=== PATIENT | female | born 1980 | race Caucasian/White ===

== ENCOUNTER 2023-08-23 08:16 | Outpatient (REF) | payer BC, SELFPAY ==
[2023-08-23 11:34] LABS: MANUAL DIFF FLAG NO
[2023-08-23 11:44] LABS: Basophils Absolute Auto 0.1 X10*3/uL (0.0-0.2); Basophils Percent Auto 0.9 % (0-2); Eosinophils Absolute Auto 0.1 X10*3/uL (0.0-0.4); Eosinophils Percent Auto 2.2 % (0-4); Hematocrit 42.7 % (37.0-47.0); Hemoglobin 14.1 g/dl (12.0-16.0); Imm Gran Abs Auto 0.02 X10*3/uL (0.00-0.03); Imm Gran Pct Auto 0.4 % (0.0-0.4); Lymphocytes Absolute Auto 2.4 X10*3/uL (1.2-4.9); Lymphocytes Percent Auto 43.5 % (20-40); Mean Corpuscular Hemoglobin 29.5 pg (27.0-33.0); Mean Corpuscular Volume 89.3 fL (80.0-98.0); Mean Platelet Volume 10.4 fL (9.4-12.3); Monocytes Absolute Auto 0.3 X10*3/uL (0.1-1.2); Monocytes Percent Auto 5.2 % (2-11); Neutrophils Absolute Auto 2.7 x10*3/uL (2.0-8.3); Neutrophils Percent Auto 47.8 % (45-73); Platelet Count 306 X10*3/uL (160-400); Red Blood Count 4.78 X10*6/uL (4.20-5.50); Red Cell Distribution Width 13.2 % (11.0-16.0); White Blood Count 5.6 X10*3/uL (4.8-10.8)
[2023-08-23 12:11] LABS: Alanine Aminotransferase 28 U/L (0-31); Albumin Level 4.4 g/dL (3.5-5.0); Alkaline Phosphatase 54 U/L (39-117); Anion Gap 13 (12-20); Aspartate Amino Transferase 21 U/L (5-31); Bilirubin Total 0.3 mg/dL (0.0-1.0); Blood Urea Nitrogen 10 mg/dL (9-16); Calcium 9.3 mg/dL (8.4-10.2); Carbon Dioxide 21 mmol/L (22-29); Chloride 110 mmol/L (96-108); Cholesterol 160 mg/dL (<200); Estimated Glomerular Filt Rate > 60; Glucose Fasting 98 mg/dL (60-99); HDL Cholesterol 50 mg/dL (>40); LDL Cholesterol Calculated 83 mg/dL (<100); Potassium 4.5 mmol/L (3.3-5.1); Sodium 139 mmol/L (135-145); Total Protein 7.2 g/dL (6.5-8.0); Triglycerides 139 mg/dL (<150)
[2023-08-23 12:27] LABS: Thyroid Stimulating Hormone 2.42 uIU/mL (0.32-4.0); Vitamin D 25-OH Total 27.5 ng/mL (>30)
== END 2023-08-23 08:17 | disposition home or self-care (01) ==
LOC: HO.HMGCLDS 08:16
PROVIDERS: PCP Internal Medicine; Visit Provider Internal Medicine
DX: Z00.00 Encounter for general adult medical examination without abnormal findings (principal); F41.9 Anxiety disorder, unspecified
CPT/HCPCS: 36415; 80053; 80061; 82306; 84443; 85025

== ENCOUNTER 2023-09-14 10:50 | Outpatient (AMB) | payer BC, SELFPAY ==
[2023-09-14 10:53] VITALS: BP 104/70; PULSE 62; O2SAT 98; BMI 33.7
--- NOTE | 2023-09-14 10:53 | A.OFFVIS_ITS ---
Intake Vital Signs 09/14/23 10:53 Height 5 ft 8 in Weight 221 lb 9.033 oz BMI 33.7 BP 104/70 Blood Pressure Location Lt brachial Position Sitting Pulse 62 Pulse Source Pulse Oximeter Pulse Oximetry (%) 98 Oxygen Delivery Method Room Air Intake Visit Reasons: Snoring Intake Note: pt is here as a new patient for work up of [place], she states she snores, daytime somnolence. pt does have a hx of childhood asthma, and pneumonia 4 x as a child and once in 2016. Sample Cutter Required: No Allergies metaproterenol [From ALUPENT] Allergy (Unknown, Unverified 09/14/23 11:27) RAPID HEART RATE nut - unspecified [NUTS] Allergy (Unknown, Unverified 09/14/23 11:27) THROAT CLOSES Sulfa (Sulfonamide Antibiotics) [SULFA (SULFONAMIDE ANTIBIOTICS)] Allergy (Unknown, Unverified 09/14/23 11:27) RASH Medication List - Last Reconciled 09/14/23 by Michael Osman MD escitalopram oxalate 10 mg PO DAILY multivitamin (Daily Multi-Vitamin tablet) 1 tab PO DAILY PRN Do you need a note to return to daycare/school/sports/work: No HPI Snoring HPI Details 43 YEARS OLD FEMALE, WELL EDUCATED, GRAD UATE OF [facility] [employer] IN 1999, 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 ADRIAN ALVARES, TO BE EVALUATED FOR SLEEP APNEA. HER MAIN COMPLAINT IS SNORING AND DAYTIME SLEEPINESS. SHE GIVES HISTORY OF GAINING SIGNIFICANT AMOUNT OF WEIGHT AFTER THE OF HER DAUGHTER ABOUT 10 YEARS AGO. SINCE 2015 SHE HAS NOT BEEN ABLE TO LOSE WEIGHT. SHE HAS HISTORY OF SNORING EVERY NIGHT SINCE THEN, WAKES UP WITH DRY MOUTH. DURING THE NIGHT SHE WAKES ABOUT 2 OR 3 TIMES TO GO TO THE BATHROOM, BUT SHE DENIES WAKING UP WITH GASPING LIKE FEELING. AFTER WAKING UP SHE GOES RIGHT BACK TO SLEEP. SHE DOES GET ABOUT 6-7 HOURS OF SLEEP EVERY NIGHT, BUT WAKES UP SOMEWHAT UNREFRESHED. SHE DOES HAVE DAYTIME SOMNOLENCE, SUCH IF SHE SITS AND WATCHES TV STARTS READING ANY BOOK, AND ALSO WHEN SHE COMES BACK FROM WORK SHE IS TIRED AND SLEEPY IN THE AFTERNOON. ESS= 15. SHE HAS BEEN TOLD THAT SHE HAS A SLIGHT OVERBITE OF HER TEETH. SHE HAS HISTORY OF BRONCHIAL ASTHMA IN CHILDHOOD BUT OUTGREW, AND THEN SHE HAS NOT USED ANY BRONCHODILATOR INHALER FOR LONG TIME. HOWEVER IF DURING THE YEAR SHE SUFFERS FROM ANY ACUTE RESPIRATORY INFECTION SHE MAY NEED TO USE ALBUTEROL JUST FOR A SHORT PERIOD. SHE HAS MILD DEGREE OF DEPRESSION CONTROLLED WITH ESCITALOPRAM 10 MG DAILY. [facility] Medical History (Updated 09/14/23 @ 11:41 by Michael Osman MD) Somnolence, daytime Snoring Retrognathia Obesity (BMI 30-39.9) Social History Patient Tobacco Use Status: Former Tobacco user Years Smoked: 18 Review of Systems Const All systems reviewed & are unremarkable except as noted in HPI and below Eyes Reports no additional complaints ENT Reports no additional complaints Card Denies chest pain, Denies irregular heart rhythm, Denies leg edema and Denies dyspnea on exertion Resp Reports as per HPI and Denies dyspnea on exertion GI Reports no additional complaints Reports nocturia (2-3 TIMES ) Musc Reports no additional complaints Skin/Breast Reports system reviewed and no additional complaints, except as documented Neuro Reports no additional complaints Psych Reports depression (MILD WELL CONTROLLED) Endo Reports no additional complaints Duncan/Lymph Reports no additional complaints Aller/Immun Reports no additional complaints Physical Exam Vital Signs: Last Vital Signs Pulse 62 09/14/23 10:53 BP 104/70 09/14/23 10:53 Pulse Ox 98 09/14/23 10:53 Oxygen Delivery Method Room Air 09/14/23 10:53 BMI result Body Mass Index 33.7 VERY PLEASANT, HEALTHY LOOKING WITH MODERATE OBESITY Const General: healthy appearing (EXCEPT FOR BEING OVERWEIGHT), comfortable, no acute distress, alert and awake Orientation/consciousness: patient oriented x3 HEENT Head: Yes normal to inspection General nose exam: No nasal polyps present and No nasal discharge present Face and sinus: Yes sinuses nontender Mouth: oropharynx normal (TONGUE IS PLACED BACK, OROPHARYNX IS SLIGHTLY CROWDED ) and other (MALLAMPATI CLASS 3) Teeth and gingiva: other (MILD RETRO AGAIN JOSEFINA OF THE LOWER JAW) Throat: Yes posterior oropharynx normal Eyes General: appearance normal, both eyes and all related structures Neck Neck: Yes normal visual inspection, Yes no lymphadenopathy, Yes trachea midline, Yes no JVD and Yes other (NECK SIZE 16 IN) Thyroid: Thyroid normal Chest Chest palpation & inspection: normal inspection of the chest, normal palpation of entire chest wall and no tenderness Resp Effort & Inspection: normal respiratory effort Auscultation: clear to auscultation bilaterally, no crackles and no wheezes Cardio Palpation: normal PMI Rate: regular rate Rhythm: regular rhythm Heart sounds: no gallops and no murmurs Peripheral pulses: Peripheral pulses 2+ throughout GI Palpation (GI): Soft to palpation, nontender, No hepatosplenomegaly present and no masses Auscultation: normal bowel sounds Back/Spine/Pelvis Thoracic/Lumbar Spine: thoracic and lumbar spine normal to inspection Skin General skin exam: no rashes or lesions noted Neuro General: patient oriented x3 and no focal motor deficits Cranial nerves: Yes CN's II-XII intact bilaterally Extrem General: Yes normal to inspection, Yes no clubbing, cyanosis or edema and Yes no calf tenderness Psych Speech and movement: Normal speech and movement present Results Reviewed Results Reviewed: APT FOR SLEEPINESS SCALE = 15/24 Assessment & Plan Assessment & Plan (1) Obesity (BMI 30-39.9): Comment: SHE IS MODERATELY OBESE. HAS BEEN FAIRLY WELL CONSCIOUS OF THIS BUT HAS NOT TRIED TO LOSE WEIGHT, SERIOUSLY. Code(s): E66.9 - Obesity, unspecified Plan: DISCUSSED ABOUT THE NEED TO LOSE WEIGHT AND ALSO RELATIONSHIP OF WEIGHT WITH SNORING AND SLEEP APNEA (2) Retrognathia: Comment: SHE HAS A MILD RETRO AGAIN JOSEFINA OF THE LOWER JAW, AND THIS MAY BE CONTRIBUTING TO SNORING AND POSSIBLE SLEEP APNEA. Code(s): M26.19 - Other specified anomalies of jaw-cranial base relationship Plan: PATIENT JUST EDUCATED ABOUT THIS (3) Snoring: Comment: SHE HAS HAD LOUD SNORING FOR MANY YEARS AT LEAST SINCE 2015 Code(s): R06.83 - Snoring Plan: WILL BE EVALUATED FOR SLEEP APNEA (4) Somnolence, daytime: Comment: PATIENT HAS EXCESSIVE DAYTIME SLEEPINESS, EPWORTH SLEEPINESS SCALE 15. VERY MUCH SUGGESTIVE OF INSUFFICIENT SLEEP AT NIGHT DUE TO OBSTRUCTIVE SLEEP APNEA. Code(s): R40.0 - Somnolence Plan: WE HAD A LONG DISCUSSION, SHE IS FULLY EDUCATED ABOUT SNORING AND SLEEP APNEA. SHE WILL HAVE A HOME-BASED SLEEP STUDY, WHICH HAS BEEN EXPLAINED IN DETAIL. WILL BE RECHECKED AFTER THE SLEEP STUDY Orders: Orders RT home sleep study Today E66.9 - Obesity, unspecified, M26.19 - Other specified anomalies of jaw-cranial base relationship, R06.83 - Snoring, R40.0 - Somnolence Coding Level of Care Code New Pt Level 4 (83700) Diagnoses Obesity (BMI 30-39.9) E66.9 Retrognathia M26.19 Snoring R06.83 Somnolence, daytime R40.0
== END 2023-09-14 11:30 | disposition home or self-care (01) ==
PROVIDERS: PCP Internal Medicine; Referring Provider Internal Medicine; Visit Provider Internal Medicine
DX: E66.9 Obesity, unspecified (principal); M26.19 Other specified anomalies of jaw-cranial base relationship; R06.83 Snoring; R40.0 Somnolence
CPT/HCPCS: 99204

== ENCOUNTER → 2023-09-14 10:50 | Outpatient (BNVA) | payer BC, SELFPAY | PROVIDERS: PCP Internal Medicine; Referring Provider Internal Medicine; Visit Provider Internal Medicine ==

== ENCOUNTER → 2023-11-24 20:30 | Outpatient (REF) | payer BC, SELFPAY | LOC: HO.SL 20:30 | PROVIDERS: PCP Internal Medicine; Visit Provider Internal Medicine | DX: G47.33 Obstructive sleep apnea (adult) (pediatric) (principal); R40.0 Somnolence; R06.83 Snoring; E66.9 Obesity, unspecified | CPT/HCPCS: 95810 ==

== ENCOUNTER → 2023-11-24 21:48 | Outpatient (BNV) | payer BC, SELFPAY | PROVIDERS: PCP Internal Medicine; Visit Provider Internal Medicine | DX: G47.33 Obstructive sleep apnea (adult) (pediatric) (principal) | CPT/HCPCS: 95810 ==

== ENCOUNTER 2023-12-20 14:05 | Outpatient (AMB) | payer BC, SELFPAY ==
[2023-12-20 14:11] VITALS: BP 102/68; PULSE 71; O2SAT 96; BMI 34.9
--- NOTE | 2023-12-20 14:11 | A.OFFVIS_ITS ---
Vital Signs 12/20/23 14:11 Height 5 ft 8 in Weight 229 lb 4.492 oz BMI 34.9 BP 102/68 Blood Pressure Location Lt brachial Position Sitting Pulse 71 Pulse Source Pulse Oximeter Pulse Oximetry (%) 96 Oxygen Delivery Method Room Air Intake Visit Reasons: sleep apnea Intake Note: pt is here for follow up and states she is fine, here for sleep study results. Integration Project Manager Required: No Allergies metaproterenol [From ALUPENT] Allergy (Unknown, Unverified 12/20/23 16:16) RAPID HEART RATE nut - unspecified [NUTS] Allergy (Unknown, Unverified 12/20/23 16:16) THROAT CLOSES Sulfa (Sulfonamide Antibiotics) [SULFA (SULFONAMIDE ANTIBIOTICS)] Allergy (Unknown, Unverified 12/20/23 16:16) RASH Medication List - Last Reconciled 12/20/23 by Michael Osman MD escitalopram oxalate 10 mg PO DAILY multivitamin (Daily Multi-Vitamin tablet) 1 tab PO DAILY PRN Do you need a note to return to daycare/school/sports/work: No HPI HPI sleep apnea: Details: FAB, 43 YEARS OLD FEMALE, COMES FOR FOLLOW-UP AFTER HER POLYSOMNOGRAM STUDY. THE SLEEP STUDY WAS PERFORMED SHE HAS COMPLAINT OF SNORING , AND QUESTIONABLE SLEEP APNEA. A POLYSOMNOGRAM STUDY WAS ORDERED WHICH WAS DONE IN THE SLEEP LAB. RESULTS WILL BE DESCRIBED BELOW. [facility] Medical History (Updated 12/20/23 @ 16:24 by Michael Osman MD) Periodic limb movement disorder Somnolence, daytime Snoring Retrognathia Obesity (BMI 30-39.9) Social History Patient Tobacco Use Status: Former Tobacco user Years Smoked: 18 Review of Systems Const All systems reviewed & are unremarkable except as noted in HPI and below Eyes Reports no additional complaints ENT Reports no additional complaints Card Denies chest pain, Denies irregular heart rhythm, Denies leg edema and Denies dyspnea on exertion Resp Reports as per HPI and Denies dyspnea on exertion GI Reports no additional complaints Reports nocturia (2-3 TIMES ) Musc Reports no additional complaints Skin/Breast Reports system reviewed and no additional complaints, except as documented Neuro Reports no additional complaints Psych Reports depression (MILD WELL CONTROLLED) Endo Reports no additional complaints Duncan/Lymph Reports no additional complaints Aller/Immun Reports no additional complaints Physical Exam Vital Signs: Last Vital Signs Pulse 71 12/20/23 14:11 BP 102/68 12/20/23 14:11 Pulse Ox 96 12/20/23 14:11 Oxygen Delivery Method Room Air 12/20/23 14:11 BMI result Body Mass Index 34.9 VERY PLEASANT, HEALTHY LOOKING WITH MODERATE OBESITY Const General: healthy appearing (EXCEPT FOR BEING OVERWEIGHT), comfortable, no acute distress, alert and awake Orientation/consciousness: patient oriented x3 HEENT Head: Yes normal to inspection General nose exam: No nasal polyps present and No nasal discharge present Face and sinus: Yes sinuses nontender Mouth: oropharynx normal (TONGUE IS PLACED BACK, OROPHARYNX IS SLIGHTLY CROWDED ) and other (MALLAMPATI CLASS 3) Teeth and gingiva: other (MILD RETRO AGAIN JOSEFINA OF THE LOWER JAW) Throat: Yes posterior oropharynx normal Eyes General: appearance normal, both eyes and all related structures Neck Neck: Yes normal visual inspection, Yes no lymphadenopathy, Yes trachea midline, Yes no JVD and Yes other (NECK SIZE 16 IN) Thyroid: Thyroid normal Chest Chest palpation & inspection: normal inspection of the chest, normal palpation of entire chest wall and no tenderness Resp Effort & Inspection: normal respiratory effort Auscultation: clear to auscultation bilaterally, no crackles and no wheezes Cardio Palpation: normal PMI Rate: regular rate Rhythm: regular rhythm Heart sounds: no gallops and no murmurs Peripheral pulses: Peripheral pulses 2+ throughout GI Palpation (GI): Soft to palpation, nontender, No hepatosplenomegaly present and no masses Auscultation: normal bowel sounds Back/Spine/Pelvis Thoracic/Lumbar Spine: thoracic and lumbar spine normal to inspection Skin General skin exam: no rashes or lesions noted Neuro General: patient oriented x3 and no focal motor deficits Cranial nerves: Yes CN's II-XII intact bilaterally Extrem General: Yes normal to inspection, Yes no clubbing, cyanosis or edema and Yes no calf tenderness Psych Speech and movement: Normal speech and movement present Results Reviewed Results Reviewed: POLYSOMNOGRAM STUDY IN THE SLEEP LAB SHOWED HER SLEEP EFFICIENCY AND SLEEP ARCHITECTURE WERE NORMAL SHE DID NOT HAVE MUCH SNORING AND THERE WAS NO EVIDENCE OF SLEEP APNEA TOTAL SLEEP TIME AHI WAS ONLY 1.4. A MINIMAL DEGREE OF PERIODIC LIMB MOVEMENT DISORDER WAS NOTED WITH PLM INDEX 16 AND PLM AROUSAL INDEX 6.9 Assessment & Plan Assessment & Plan (1) Obesity (BMI 30-39.9): Comment: SHE IS MODERATELY OBESE. HAS BEEN FAIRLY WELL CONSCIOUS OF THIS BUT HAS NOT TRIED TO LOSE WEIGHT, SERIOUSLY. Code(s): E66.9 - Obesity, unspecified Category: Medical Plan: DISCUSSED ABOUT THIS AND ENCOURAGED TO LOSE 5-10 LB OF WEIGHT. (2) Snoring: Comment: SHE HAS HAD LOUD SNORING FOR MANY YEARS AT LEAST SINCE 2015 HOWEVER DURING THE POLYSOMNOGRAM STUDY SHE DID NOT HAVE MUCH SNORING. IT WAS NOTED THAT DURING THE STUDY SHE DID NOT SLEEP IN SUPINE POSITION. Code(s): R06.83 - Snoring Category: Medical Plan: EXPLAINED THAT IT IS POSSIBLE THAT AT HOME SHE TENDS TO SLEEP MORE IN SUPINE POSITION AND WOULD HAVE SNORING. BUT DURING THE SLEEP STUDY SHE STAYS MOSTLY IN THE LATERAL POSITIONS AND THUS THERE WAS NOT MUCH SNORING. MODERATE WEIGHT REDUCTION AND ALSO POSITION THERAPY SHOULD BE HELPFUL. (3) Somnolence, daytime: Comment: PATIENT HAS EXCESSIVE DAYTIME SLEEPINESS, EPWORTH SLEEPINESS SCALE 15. THE SLEEP STUDY DID NOT SHOW ANY SLEEP APNEA. AND THE SLEEP EFFICIENCY AND ARCHITECTURE WERE RELATIVELY NORMAL. SO HER DAYTIME SLEEPINESS IS MORE FUNCTIONAL, Code(s): R40.0 - Somnolence Category: Medical Plan: SHE IS ADVISED TO TRY TO REDUCE WEIGHT AND TRY TO DO SOME DAILY EXERCISE. (4) Periodic limb movement disorder: Comment: SHE HAS A MILD PERIODIC LIMB MOVEMENT DISORDER WITH PLM AROUSAL INDEX 6.9. THIS CAN BE SEEN IN PATIENTS TAKING SSRI COMPOUNDS, SHE IS ON ESCITALOPRAM. THE DEGREE OF PLM DISORDER IS NOT SIGNIFICANT. AND SHE DOES NOT SEEM TO HAVE ANY SYMPTOMS RELATED TO IT Code(s): G47.61 - Periodic limb movement disorder Category: Medical Plan: NO SPECIFIC TREATMENT NEEDED Coding Level of Care Code Est Pt Level 3 (80264) Diagnoses Obesity (BMI 30-39.9) E66.9 Snoring R06.83 Somnolence, daytime R40.0 Periodic limb movement disorder G47.61
== END 2023-12-20 14:31 | disposition home or self-care (01) ==
PROVIDERS: PCP Internal Medicine; Visit Provider Internal Medicine
DX: E66.9 Obesity, unspecified (principal); R06.83 Snoring; R40.0 Somnolence; G47.61 Periodic limb movement disorder
CPT/HCPCS: 99213

== ENCOUNTER → 2023-12-20 14:05 | Outpatient (BNVA) | payer BC, SELFPAY | PROVIDERS: PCP Internal Medicine; Visit Provider Internal Medicine ==

== ENCOUNTER 2024-09-06 07:51 | Day surgery (SDC) | payer BC, SELFPAY ==
[2024-09-04 14:51] VITALS: BMI 33.4
--- NOTE | 2024-09-05 09:23 | HO.ANESPROP2 ---
Documented by User: Radha Parsons NP 09/05/24 09:24 HPI - Anesthesia Eval Consult details Narrative: 44yo F for Colonoscopy PMFSH Active Problems Active Problems: All Active Problems Periodic limb movement disorder (Acute) Somnolence, daytime (Acute) Snoring (Acute) Retrognathia (Acute) Obesity (BMI 30-39.9) (Acute) Past Medical History Medical History Nephrolithiasis Periodic limb movement disorder Somnolence, daytime Snoring Retrognathia Obesity (BMI 30-39.9) Surgical History Surgical History Hx of wisdom tooth extraction Hx of section Social History Social History Are you a primary lead caregiver to a significant other at home: No Do you presently have visiting nurse or other home services: No Patient Tobacco Use Status: Former Tobacco user Tobacco use type: Cigarette Years Smoked: 18 Smoked in Last 30 Days: No Use of substances other than those prescribed or required for medical reasons: No Have you been hit, kicked, punched, or otherwise hurt by someone within the past year? If so, by whom?: No Are you DNR?: No Advance Directives: No Advance Directives Information Provided: No Advance Directives on File: No Recently lost weight without trying: No How much weight loss: Not applicable Eating poorly because of decreased appetite: No Nutrition screen score: 0 Nutrition Risks: No Nutritional Risk Patient : No : No Poor oral hygiene: Yes (bottom implant x1) Meds Allergies Allergy/AdvReac Type Severity Reaction Status Date / Time metaproterenol [From ALUPENT] Allergy Severe RAPID Verified 09/06/24 08:42 HEART RATE nut - unspecified [NUTS] Allergy Severe THROAT Verified 09/06/24 08:42 CLOSES Sulfa (Sulfonamide Allergy Severe RASH Verified 09/06/24 08:42 Antibiotics) [SULFA (SULFONAMIDE ANTIBIOTICS)] Home Medications ?Medication ?Instructions ?Recorded ?Confirmed ?Last Taken ?Type escitalopram oxalate 10 mg tablet 10 mg PO DAILY 09/14/23 09/06/24 Unknown History multivitamin (Daily Multi-Vitamin 1 tab PO DAILY 09/14/23 09/06/24 Unknown History tablet) Exam Height,Weight and Vital Signs: Height 5 ft 9 in Weight 102.512 kg Assessment and Plan Assessment Anesthesia Assessment: Chart Reviewed Documented by User: Selin Olivares MD 09/06/24 09:08 [facility] Past Medical History Medical History Nephrolithiasis Periodic limb movement disorder Somnolence, daytime Snoring Retrognathia Obesity (BMI 30-39.9) Surgical History Surgical History Hx of wisdom tooth extraction Hx of section History of Problems with Anesthesia: No Social History Social History Are you a primary lead caregiver to a significant other at home: No Do you presently have visiting nurse or other home services: No Patient Tobacco Use Status: Former Tobacco user Tobacco use type: Cigarette Years Smoked: 18 Smoked in Last 30 Days: No Use of substances other than those prescribed or required for medical reasons: No Have you been hit, kicked, punched, or otherwise hurt by someone within the past year? If so, by whom?: No Are you DNR?: No Advance Directives: No Advance Directives Information Provided: No Advance Directives on File: No Recently lost weight without trying: No How much weight loss: Not applicable Eating poorly because of decreased appetite: No Nutrition screen score: 0 Nutrition Risks: No Nutritional Risk Patient : No : No Poor oral hygiene: Yes (bottom implant x1) Meds Allergies Allergy/AdvReac Type Severity Reaction Status Date / Time metaproterenol [From ALUPENT] Allergy Severe RAPID Verified 09/06/24 08:42 HEART RATE nut - unspecified [NUTS] Allergy Severe THROAT Verified 09/06/24 08:42 CLOSES Sulfa (Sulfonamide Allergy Severe RASH Verified 09/06/24 08:42 Antibiotics) [SULFA (SULFONAMIDE ANTIBIOTICS)] Home Medications ?Medication ?Instructions ?Recorded ?Confirmed ?Last Taken ?Type escitalopram oxalate 10 mg tablet 10 mg PO DAILY 09/14/23 09/06/24 Unknown History multivitamin (Daily Multi-Vitamin 1 tab PO DAILY 09/14/23 09/06/24 Unknown History tablet) Exam Airway Mallampati Class: III TM Dist: >3cm Neck ROM: Full Loose/Missing/Broken Teeth: No Heart: RRR Lungs: CTA Assessment and Plan Assessment Anesthesia Assessment: Anesthesia Plan Discussed Final Anesthetic Review History of Problems with Anesthesia: No NPO: Yes ASA Class: II Final Preanesthetic Review: Meds/Allgs Chart Reviewed, Consent Obtained/Reviewed and Anes Risks/Benef Reviewed Patient Risk: Low Procedure Risk: Low Anesthetic Plan Anesthetic Plan: MAC: Disposition: Standard PACU
[2024-09-06 08:42] VITALS: BP 144/63; PULSE 63; RESP 16; TEMP 37.1; O2SAT 97; BMI 32.9
[2024-09-06 08:53] LABS: UPreg QC Valid YES; Urine Pregnancy NEGATIVE (NEGATIVE)
[2024-09-06] MEDS: Lactated Ringers 1,000 ML 100 ML IVCONT (09:10)
--- NOTE | 2024-09-06 09:39 | MHC.SHP ---
Pre-Procedural Eval Section A - 24 Hr Update-Section A only Date of Service: 09/06/24 Section B - Complete if H&P > 30 days Chief Complaint: Encounter for screening for malignant neoplasm of Details of Present Illness: see H&P no changes Relevant Family History (Specify if Yes): No Relevant Social History: None Present Medications: see Short Stay Collaborative assessment Medical History: No relevant PMH History of Previous Operations: No relevant previous surgery Allergies: Allergies Allergy/AdvReac Type Severity Reaction Status Date / Time metaproterenol [From ALUPENT] Allergy Severe RAPID Verified 09/06/24 08:42 HEART RATE nut - unspecified [NUTS] Allergy Severe THROAT Verified 09/06/24 08:42 CLOSES Sulfa (Sulfonamide Allergy Severe RASH Verified 09/06/24 08:42 Antibiotics) [SULFA (SULFONAMIDE ANTIBIOTICS)] Review of Systems Sugical H&P ROS: Negative: Constitution, Cardiovascular, Respiratory, Neurological, Psychiatric, Hem-Onc, Allergic/Immunologic, Gastrointestinal, Genitourinary, Musculoskeletal, Integumentary, Endocrine and Eyes/Ears/Nose/Throat Exam Surgical H&P Exam: Normal: HEENT, Normal: Heart, Normal: Lungs, Normal: Extremities, Normal: Abdomen, Normal: Skin and Normal: Neurological Plan Diagnosis/Plan: Unchanged I have reviewed the history and physical and performed a pertinent physical examination on my patient. No changes have occurred unless specified. Time Spent With Patient Time: Total time managing care of this patient today ____ minutes.
[2024-09-06 10:21] VITALS: BP 109/65; PULSE 61; RESP 18; TEMP 36.3; O2SAT 100
[2024-09-06 10:36] VITALS: BP 128/74; PULSE 54; RESP 18; O2SAT 100
[2024-09-06 10:46] VITALS: BP 138/89; PULSE 56; RESP 16; TEMP 36.3; O2SAT 98
--- NOTE | 2024-09-06 10:53 | OP_ITS ---
DATE OF SERVICE: 09/06/2024 SURGEON: Sherman Ovalles MD INDICATIONS: Colon cancer screening. PREOPERATIVE DIAGNOSIS: POSTOPERATIVE DIAGNOSIS: PROCEDURE PERFORMED: Colonoscopy to the terminal ileum with biopsy and snare polypectomy. ESTIMATED BLOOD LOSS: COMPLICATIONS: ANESTHESIA: Monitored anesthesia care. ASSISTANTS: SPECIMENS: DESCRIPTION OF PROCEDURE: A history and physical was performed. The risks and benefits of the procedure were explained to the patient and informed consent was obtained. The patient was placed in the left lateral decubitus position. A digital rectal exam was performed and was found to be normal. The Olympus pediatric video colonoscope was introduced in the rectum and advanced to the cecum. The cecum was identified by transillumination, palpation, and identification of ileocecal valve. Examination was performed and the scope was removed. She tolerated the procedure well and was returned to recovery area in stable condition. FINDINGS: The terminal ileum was examined and appeared normal. The visualized colonic mucosa was normal. The quality of the prep was good. Two polyps were identified. The 1st measured less than 5 mm and was located at 45 cm. This was removed with biopsy forceps. The 2nd measured approximately 7 mm and was removed with a cold snare. The polyp was recovered via suction. The quality of the prep was good. No other polyps were identified. Retroflexed examination showed small to moderate-sized internal hemorrhoids. IMPRESSION: Colon polyps. RECOMMENDATION: Follow up the biopsy results. MD WILBUR Amos/MARGRET / [phone]
== END 2024-09-06 11:08 | disposition home or self-care (01) ==
PROVIDERS: Nurse Practitioner; PCP Internal Medicine; Visit Provider Internal Medicine Gastroenterology
PROC: 0DJD8ZZ Inspection of Lower Intestinal Tract, Via Natural or Artificial Opening Endoscopic (ICD-10-PCS; CPT 45378; principal; 2024-09-06 09:50)
DX: Z12.11 Encounter for screening for malignant neoplasm of colon (principal); K63.5 Polyp of colon; K64.8 Other hemorrhoids; N20.0 Calculus of kidney; F41.9 Anxiety disorder, unspecified; Z79.899 Other long term (current) drug therapy; Z88.2 Allergy status to sulfonamides; Z88.8 Allergy status to other drugs, medicaments and biological substances; Z87.891 Personal history of nicotine dependence
CPT/HCPCS: 45385; 45380; 81025; 88305; J2003; J2704

== ENCOUNTER 2024-10-29 10:26 | Outpatient (AMB) | payer BC, SELFPAY ==
--- NOTE | 2024-10-29 10:27 | MHC.PC.OV ---
Vital Signs 10/29/24 10:33 Height 5 ft 8 in Weight 226 lb BMI 34.4 BP 116/80 Blood Pressure Location Rt brachial Pulse 77 Pulse Source Pulse Oximeter Temp 97.3 F Pulse Oximetry (%) 98 Intake Visit Reasons: sick Intake Note: painful chest coughing up green phlegm started Monday night it is worse since then. Allergies metaproterenol [From ALUPENT] Allergy (Severe, Verified 10/29/24 10:53) RAPID HEART RATE nut - unspecified [NUTS] Allergy (Severe, Verified 10/29/24 10:53) THROAT CLOSES Sulfa (Sulfonamide Antibiotics) [SULFA (SULFONAMIDE ANTIBIOTICS)] Allergy (Severe, Verified 10/29/24 10:53) RASH Medication List - Last Reconciled 10/29/24 by Valerie Archuleta PA-C azithromycin For 250 mg dose pack: take 500 mg today (day 1), then 250 mg for 4 days (days 2-5) PO escitalopram oxalate 10 mg PO DAILY multivitamin (Daily Multi-Vitamin tablet) 1 tab PO DAILY [facility] Medical History (Updated 11/01/24 @ 13:36 by Valerie Archuleta PA-C) SOB (shortness of breath) Cough Upper respiratory infection Enlarged lymph node Acute bacterial bronchitis Anxiety disorder History of pneumonia Bulimia nervosa Eating disorder Depression Asthma Nephrolithiasis Periodic limb movement disorder Somnolence, daytime Snoring Retrognathia Obesity (BMI 30-39.9) Surgical History History of colonoscopy (~09/06/24) Hx of wisdom tooth extraction Hx of section Social History Are you a primary personal care assistant to a significant other at home: No Do you presently have visiting nurse or other home services: No Patient Tobacco Use Status: Former Tobacco user Tobacco use type: Cigarette Years Smoked: 18 Physical exam (Primary Care) Vital Signs: Last Vital Signs Temp 97.3 F 10/29/24 10:33 Pulse 77 10/29/24 10:33 BP 116/80 10/29/24 10:33 Pulse Ox 98 10/29/24 10:33 Care Plan Goal for BP management: <130/80 at goal BMI result Body Mass Index 34.4 BMI Assessment/Plan discussion: High BMI High, discussed plan: lifestyle, weight reduction, dietary, physical activity and alcohol moderation Tobacco/Smoking Status: Tobacco use Status Patient Tobacco Use Status Former Tobacco user 10/29/24 10:28 Tobacco use type Cigarette 10/29/24 10:28 Coding Level of Care Code New Pt Level 4 (29489) Diagnoses Acute bacterial bronchitis J20.8; B96.89 Enlarged lymph node R59.9 Assessment & Plan Assessment & Plan (1) Acute bacterial bronchitis: Code(s): J20.8 - Acute bronchitis due to other specified organisms; B96.89 - Other specified bacterial agents as the cause of diseases classified elsewhere Category: Medical Plan: Patient will be started on a Z-Jamie. No labs or imaging indicated as patient is afebrile, oxygen 98% on room air. She is not tachypneic and is not tachycardic. H&P not consistent with pneumonia. Condition is stable continue to monitor. (2) Enlarged lymph node: Code(s): R59.9 - Enlarged lymph nodes, unspecified Category: Medical Plan: Most likely related to upper respiratory infection that she has at this time. Will re-evaluate at next visit if continues to be enlarged will pursue possible imaging. Condition is stable continue to monitor. Plan Plan Patient was informed and verbally consented to the use of an ambient scribe for clinic note documentation during this visit. 1. Bacterial bronchitis Azithromycin is prescribed for suspected bacterial pneumonia due to history and symptomatology. 2. Localized enlarged lymph nodes Patient advised to consult a dentist about potential jaw clenching; symptoms to be monitored for potential dental causes. Discussion Notes During the visit, I discussed with the patient that her symptoms are consistent with a bacterial respiratory infection, likely bronchitis considering the green sputum. The patient reported prior successful treatment with a Z-Jamie, which I have prescribed again. I noted that while there were no significant findings to suggest the need for additional medication like albuterol or cough syrup, she should monitor her symptoms and follow up as needed. The patient understood and agreed with the plan. I encouraged her to communicate with her dentist regarding the persistent lymph node tenderness, which might be related to jaw clenching. She also received information about accessing the patient portal for further communication and set to follow up with her new physician, as scheduled. Medications: New azithromycin For 250 mg dose pack: take 500 mg today (day 1), then 250 mg for 4 days (days 2-5) PO 6 tabs 0RF Patient Instructions: Patient Instructions - Start the prescribed Azithromycin for respiratory symptoms. - Monitor symptoms closely and seek medical attention if respiratory distress or significant changes occur. - Discuss persistent lymph node tenderness with a dentist for potential jaw clenching issues. - Follow-up with the scheduled appointment with the primary care physician and discuss any new or ongoing symptoms. - Utilize the patient portal for any questions or concerns regarding health and treatment. Scribe Plan - Not visible on output: History of Present Illness The patient is a 44-year-old female presenting with respiratory symptoms characterized by painful deep breathing and cough with green sputum production. She has a history of bacterial pneumonia and recurrent respiratory infections, for which she has been treated with antibiotics such as a Z-Jamie in the past. She reports associated night sweats and the presence of tender anterior cervical lymphadenopathy. Patient denies significant chest pain beyond coughing, fever, digestive symptoms, or recent travel. Tenderness noted in one lymph node may be associated with jaw clenching or grinding, rather than infection. 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 - Functional status: Active in providing own care, follows through on medical recommendations. - Family status: Not discussed. Review of Systems - Respiratory: Reports painful deep breathing and cough with green sputum. - General: Denies fever, nausea, vomiting. - Skin: Reports redness, possible rash from scratching during sleep. - Lymphatic: Reports tenderness of anterior cervical lymph node. - Gastrointestinal: Denies diarrhea, black or bloody stools. - Cardiovascular: Denies leg swelling. - Symptoms associated with genitourinary, musculoskeletal, and neurological systems not discussed. Physical Exam Appearance: Alert. Oriented X3. No acute distress. Head: Normal external exam. Normocephalic. Atraumatic. Eyes: Pupils are equal, round, and reactive to light. Extraocular movements intact. Conjunctiva and sclera normal. Eyelids normal. Ears: External auditory canal normal. Tympanic membranes appear slightly red, likely due to coughing, but not infected. Throat: Pharynx normal. Uvula midline. Moist mucous membranes. Some redness noted, possibly from scratching. Neck: Normal inspection. Neck supple. Full range of motion. No adenopathy. Thyroid Normal. No meningeal signs. Tender lymph node noted on one side, possibly related to jaw clenching. Cardiovascular: Normal heart rate and rhythm. Heart sound normal. No murmurs noted. Pulses normal throughout. Respiratory: No respiratory distress. Painless inspiration. Breath sounds normal. No wheezes/rales/rhonchi noted. Some congestion heard in the lower area. Chest nontender. No accessory muscle usage noted or decreased air movement noted. Abdomen: Soft and nontender. Bowel sounds normal in all 4 quadrants. No distention noted. No organomegaly noted. No visible injury noted. Back: No costovertebral angle tenderness. Full range of motion noted. Skin: Skin warm and dry. Normal skin color. Normal skin turgor. Some redness noted, possibly from scratching. No rashes/lesions/lacerations noted. Extremities: No lower extremity edema. Extremities exhibit normal range of motion. Extremities nontender. Neuro: Oriented X 3. No motor deficit. No sensory deficit. Reflexes normal.
[2024-10-29 10:33] VITALS: BP 116/80; PULSE 77; TEMP 36.3; O2SAT 98; BMI 34.4
== END 2024-10-29 10:49 | disposition home or self-care (01) ==
LOC: HO.HMCSH 10:26
PROVIDERS: PCP Internal Medicine; Visit Provider Physician Assistant Medical
DX: J20.8 Acute bronchitis due to other specified organisms (principal); B96.89 Other specified bacterial agents as the cause of diseases classified elsewhere; R59.9 Enlarged lymph nodes, unspecified

== ENCOUNTER → 2024-10-29 10:26 | Outpatient (BNVA) | payer BC, SELFPAY | PROVIDERS: PCP Internal Medicine; Visit Provider Physician Assistant Medical ==

== ENCOUNTER 2024-11-01 16:10 | Outpatient (REF) | payer BC, SELFPAY ==
--- NOTE | ~2024-11-01 | XR_ITS ---
EXAMINATION: XR CHEST 2 VIEWS HISTORY: R05.9 - Cough, unspecified COMPARISON: Comparison is made with the prior examination dated 06/27/2017. FINDINGS: PA and lateral views of the chest are submitted. The lungs are expanded and clear. There is no pleural effusion, pneumothorax, or pulmonary vascular congestion. The heart is normal in size. The bones are intact. XR/XR chest 2V IMPRESSION: No acute cardiopulmonary abnormality. Electronically signed by: Wilber Garrett MD 11/04/2024 08:05 AM EDT
[2024-11-01 19:23] LABS: Influenza A PCR NEGATIVE (Negative); Influenza B PCR NEGATIVE (Negative); Resp Syncy Virus RNA Qual PCR NEGATIVE (Negative); SARS COV2 PCR INHOUSE NEGATIVE (Negative)
[2024-11-02 09:10] LABS: Adenovirus PCR Not Detected (Not Detect.); Bordetella parapertussis PCR Not Detected (Not Detect.); Bordetella pertussis PCR Not Detected (Not Detect.); Chlamydia pneumoniae PCR Not Detected (Not Detect.); Coronavirus 229E PCR Not Detected (Not Detect.); Coronavirus HKU1 PCR Not Detected (Not Detect.); Coronavirus NL63 PCR Not Detected (Not Detect.); Coronavirus OC43 PCR Not Detected (Not Detect.); Human metapneumovirus PCR Detected (Not Detect.); Influenza A PCR Not Detected (Not Detect.); Influenza B PCR Not Detected (Not Detect.); Mycoplasma pneumoniae PCR Not Detected (Not Detect.); Parainfluenza 1 PCR Not Detected (Not Detect.); Parainfluenza 2 PCR Not Detected (Not Detect.); Parainfluenza 3 PCR Not Detected (Not Detect.); Parainfluenza 4 PCR Not Detected (Not Detect.); RSV PCR Not Detected (Not Detect.); Rhino/Enterovirus PCR Not Detected (Not Detect.); SARS-CoV-2 PCR Not Detected (Not Detect.)
[2024-11-02 10:04] LABS: Influenza A H1 PCR Not Detected (Not Detect.); Influenza A H1-2009 PCR Not Detected (Not Detect.); Influenza A H3 PCR Not Detected (Not Detect.)
== END 2024-11-01 16:11 | disposition home or self-care (01) ==
LOC: HO.XRAY 16:10
PROVIDERS: PCP Internal Medicine; Visit Provider Physician Assistant Medical
DX: R06.02 Shortness of breath (principal); R05.9 Cough, unspecified; R09.89 Other specified symptoms and signs involving the circulatory and respiratory systems; J06.9 Acute upper respiratory infection, unspecified
CPT/HCPCS: 0241U; 71046; 87633

== ENCOUNTER → 2024-11-01 16:14 | Outpatient (BNV) | payer BC, SELFPAY | PROVIDERS: PCP Internal Medicine; Visit Provider Radiology Diagnostic Radiology | DX: R05.9 Cough, unspecified (principal) | CPT/HCPCS: 71046 ==

== ENCOUNTER 2024-11-19 11:15 | Outpatient (AMB) | payer BC, SELFPAY ==
[2024-11-19 11:16] VITALS: BP 136/88; PULSE 82; RESP 14; TEMP 36.5; O2SAT 98; BMI 34.8
--- NOTE | 2024-11-19 11:16 | A.OFFPC_ITS ---
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: No Accompanied by: Self / Same As Patient Allergies metaproterenol [From ALUPENT] Allergy (Severe, Verified 11/23/24 06:46) RAPID HEART RATE nut - unspecified [NUTS] Allergy (Severe, Verified 11/23/24 06:46) THROAT CLOSES Sulfa (Sulfonamide Antibiotics) [SULFA (SULFONAMIDE ANTIBIOTICS)] Allergy (Severe, Verified 11/23/24 06:46) RASH Medication List - Last Reconciled 11/23/24 by Michael Tam MD amoxicillin-pot clavulanate 875-125 mg 1 tab PO BID 10 days escitalopram oxalate 10 mg PO DAILY meloxicam 15 mg PO DAILY multivitamin (Daily Multi-Vitamin tablet) 1 tab PO DAILY prednisone 40 mg (2 x 20 mg) PO DAILY 5 days Tobacco use date assessed: 11/19/24 Dental Screening Dental Screen Date: 11/19/24 Did you have a dental visit in the last 12 months?: Yes Did you have a dental problem in the last 6 months where you did not have access to dental care?: No Was dental information given to patient?: Patient has dentist [facility] Medical History (Updated 11/23/24 @ 06:52 by Michael Tam MD) Right shoulder pain SOB (shortness of breath) Cough Upper respiratory infection Enlarged lymph node Acute bacterial bronchitis Anxiety disorder History of pneumonia Bulimia nervosa Eating disorder Depression Asthma Nephrolithiasis Periodic limb movement disorder Somnolence, daytime Snoring Retrognathia Obesity (BMI 30-39.9) Surgical History History of colonoscopy (~09/06/24) Hx of wisdom tooth extraction Hx of section Family History (Updated 11/19/24 @ 11:34 by JASWINDER Torres) Father COPD (chronic obstructive pulmonary disease) Macular degeneration Smoker Mother Diabetes Social History (Updated 11/19/24 @ 11:34 by Iris Couvertier, RMA) Housing: House Are you a primary acute care occupational therapist to a significant other at home: No Do you presently have visiting nurse or other home services: No Alcohol intake: current Alcohol intake frequency: does not drink Patient Tobacco Use Status: Former Tobacco user Years Smoked: 16 service: No Current occupational status: employed Cognitive needs: No Hearing needs: No Vision needs: Yes (reading glasses) Questionnaire PHQ-9 Over the last 2 weeks, how often have you been bothered by any of the following problems? 1. Little interest or pleasure in doing things: not at all 2. Feeling down, depressed, or hopeless: not at all 3. Trouble falling or staying asleep, or sleeping too much: not at all 4. Feeling tired or having little energy: not at all 5. Poor appetite or overeating: not at all 6. Feeling bad about yourself - or that you are a failure or have let yourself or your family down: not at all 7. Trouble concentrating on things, such as reading the newspaper or watching television: not at all 8. Moving or speaking so slowly that other people could have noticed. Or the opposite - being so fidgety or restless that you have been moving around a lot more than usual: not at all 9. Thoughts that you would be better off or of hurting yourself in some way: not at all Total score: 0 Source: Developed by Drs. Wilber Villalobos, Barbie Fulton, Kye Kellogg and colleagues, with an educational radha from [employer]. Thrive Questionnaire Date Thrive assessed: 11/19/24 I am a: Patient What is your living situation today?: I have a steady place to live Within the past 12 months, did the food you bought not last and you didn't have the money to get more?: Never true Within the past 12 months, did you worry whether your food would run out before you got money to buy more?: Never true Do you have trouble paying for medicines?: No Do you have trouble getting transportation to medical appointments?: No Do you have trouble paying your heating and electricity bill?: No Do you have trouble taking care of your child, family member or friend?: No Do you have trouble with day-to-day activities such as bathing, preparing meals, shopping, managing finances, etc.?: No Are you currently unemployed and looking for a job?: No Are you interested in more education?: No Please select the resources that you would like help with: None THRIVE Score: 0 AUDIT C Alcohol Use Questionnaire (AUDIT-C) 1. How often do you have a drink containing alcohol?: Never 3. How often do you have six or more drinks on one occasion?: Never Total Score: 0 TEVIN-7 AMB Questionnaire TEVIN-7 Date TEVIN - 7 assessed: 11/19/24 Feeling nervous, anxious, or on edge: 0 = Not at all Not being able to stop or control worryin = Not at all Worrying too much about different things: 0 = Not at all Trouble relaxin = Not at all Being so restless that it is hard to sit still: 0 = Not at all Becoming easily annoyed or irritable: 0 = Not at all Feeling afraid as if something awful might happen: 0 = Not at all Total TEVIN-7 score (0-4 normal; 5-9 mild; 10-14 moderate; 15-21 severe): 0 Source: Developed by Drs. Wilber Villalobos, Barbie Fulton, Kye Kellogg and colleagues, with an educational radha from [employer]. Physical exam (Primary Care) Vital Signs: Last Vital Signs Temp 97.7 F 11/19/24 11:16 Pulse 82 11/19/24 11:16 Resp 14 11/19/24 11:16 BP 136/88 11/19/24 11:16 Pulse Ox 98 11/19/24 11:16 Oxygen Delivery Method Room Air 11/19/24 11:16 BMI result Body Mass Index 34.8 Tobacco/Smoking Status: Tobacco use Status Tobacco use date assessed 11/19/24 11/19/24 11:21 Patient Tobacco Use Status Former Tobacco user 11/19/24 11:34 Tobacco use type Cigarette 11/06/24 13:40 PHQ-9: PHQ-9 Score PHQ-9: Total score 0 11/19/24 11:34 Thrive Assessment: Date of Thrive Assessment Date Thrive assessed 11/19/24 11/19/24 11:21 Coding Level of Care Code New Pt Level 4 (29434) Complex EM visit Add On G2211 Diagnoses Depression F32.A Right shoulder pain M25.511 Assessment & Plan Assessment & Plan (1) Depression: Code(s): F32.A - Depression, unspecified Category: Medical Plan: Citalopram to be continued. (2) Right shoulder pain: Code(s): M25.511 - Pain in right shoulder Category: Medical Plan: Anti inflammatory ordered. If sx do not improve, nerve conduction study ordered. Plan History of Present Illness The patient is a 44-year-old female presenting with follow-up concerns regarding her medication regimen and new musculoskeletal symptoms. The primary concern includes numbness and pain from the thumb up to the shoulder, associated with her occupational activities involving repetitive typing. Recent onset shoulder pain exacerbates upon lying down, worsening her ability to rest. Regarding psychiatric history, the patient is managing her generalized anxiety disorder with Lexapro 10 mg, noting significant improvement in emotional symptoms and utilizing therapy sessions as a form of behavioral support and management. The patient additionally presents with knee pain, which has shown gradual improvement without recollection of a specific inciting injury. The patient?s symptomatology aligns with potential carpal tunnel syndrome, given the involvement of the wrist and hand nerves. Lifestyle and occupational habits may contribute to this presentation. 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 - Extensive typing as part of job duties. - Attends therapy sessions bi-weekly, including individual and group therapy. - Past history of eating disorder, avoids weighing herself to prevent unhealthy behaviors. Review of Systems - Musculoskeletal: Reports numbness and pain radiating from thumb to shoulder; knee pain. - Psychological: Reports managed anxiety but not completely resolved with episodes of emotional instability greatly reduced. Physical Exam General: Appearance normal, both eyes and all related structures Nutritional Appearance: Well nourished Orientation/consciousness: Patient oriented x3 Limitations: No limitations Head: Normal to inspection Neck: Normal visual inspection Chest: Normal palpation of entire chest wall Respiratory: Normal respiratory effort Neurology: Patient oriented x3, reports numbness and pain from thumb to shoulder, pain worsens when lying down, knee pain reported, pain in shoulder varies in location Results Plan The plan involves continuation of Lexapro at the current dosage for managing generalized anxiety disorder due to observed efficacy. I will order blood work to assess any contributing factors to the patient?s musculoskeletal discomfort. For the symptoms indicative of carpal tunnel syndrome, a course of meloxicam for two weeks is recommended, with further evaluation if symptoms persist. Observation of knee pain will continue, with additional diagnostics if necessary. The patient is informed about implementing workplace ergonomic strategies to alleviate symptoms. Patient was informed and verbally consented to the use of an ambient scribe for clinic note documentation during this visit. Discussion Notes During our discussion, I reviewed the ongoing management of the patient?s anxiety disorder, confirming the effectiveness of Lexapro. I explained the likely diagnosis of carpal tunnel syndrome due to her occupational stress and outlined the initial anti-inflammatory therapy, discussing its potential benefits and monitoring guidelines. The patient is advised on ergonomic adjustments for her job and the potential need for neurophysiological studies if symptoms do not resolve. Knee pain is acknowledged, anticipated to decrease over time, with symptomatic treatment and further evaluation as needed. Follow-up after initial treatment trials were outlined, ensuring the patient is informed and empowered regarding her healthcare plan. Patient Instructions - Continue taking Lexapro as prescribed. - Begin taking meloxicam daily with food for two weeks. - Report any new or worsening symptoms, particularly numbness or increased pain. - Attend any ordered blood work appointments. - Seek ergonomic adjustments at work to minimize hand and arm strain. - Return for evaluation if symptoms do not improve after treatment trial or for significant knee pain persistence. Orders: Orders Basic Metabolic Panel 11/19/24 F3.A - Depression, unspecified Liver Panel 11/19/24 F3.A - Depression, unspecified Thyroid Stimulating Hormone 11/19/24 F3.A - Depression, unspecified UA and rflx microscopic 11/19/24 F3.A - Depression, unspecified Complete Blood Count no Diff 11/19/24 F3.A - Depression, unspecified Lipid Panel 11/19/24 F3.A - Depression, unspecified Medications: New meloxicam 15 mg PO DAILY 14 tabs 0RF
--- OUTSIDE RECORDS SUMMARY | 2024-11-19 13:45 | XMS_ITS | Patient Health Record ---
Author Organization [facility] Address [address] [place] [address] Care Team Providers Care Child Watch Attendant Name Role Phone Jimbo (RETIRED) Wilber JIMENEZ Primary Care Provid er Unavailable Sherman Ovalles Jr Unavailable Allergies Allergen (clinical drug ingredient) Drug/Non Drug Allergy documented on EMR Reaction Allergy Type Onset Date Status Substance with sulfonamide structure and antibacterial mechanism of action (substance) Sulfa Antibiotics Unknown Drug Allergy Active Alupent Unknown Drug Allergy Active Results Component Value Reference Range Notes Ur Preg Test Reviewed date:09/06/2024 09:39:10 PM Interpretation: Performing Lab:[facility], [address] [place] [phone] Notes/Report: Urine NEGATIVE NEGATIVE This test was developed to detect early . False negative results may occur after the 5th - 7th week of when using this test method. If clinically indicated, consider a serum hCG. Pathology Reviewed date:09/12/2024 10:29:48 AM Interpretation: Performing Lab:[facility], [address] [place] [phone] Notes/Report: ----- Name: Fab Maciel Age/Sex: 44/F : 1980 Unit#: [id number] Attend Dr: Sherman Ovalles MD Re09/06/24 Status : [facility] Location: [facility] Disch: ----- SPEC : [id number] RECD: 09/06/24-5 STATUS: VICKIE MORALES NUM: [id number] KRUPA: 09/06/24-[address]: Sherman Ovalles MD ENTERED: 09/06/24- 52 SP TYPE: Surgical OTHR DR: Wilber Choi DO ORDERED: Gross Micro L4/2 Diagnosis A. Colon, at 45 cm, polyp: Hyperplastic polyp. B. Colon, at 25 cm, polyp: Hyperplastic polyp. Clinical History Pre-Op Dx: Screening Post-Op Dx: Colon polyps Microscopic Description Microscopic sections reviewed. Material Received A. Polyp at 45 cm. B. Polyp at 25 cm. Gross Description Received in 2 parts. A. Received in forma mary labeled ?polyp at 45 cm? is a fragment of granda-white soft tissue measuring 0.3 cm in greatest dimension which is wrapped in lens paper and entirely submitted for microscopic examination, 1 piece in cassette A. B. Received in forma mary labeled ?polyp at 25 cm? is a fragment of red-pink soft tissue measuring 1.2 x 0.5 x 0.2 cm in greatest dimension which is bisected, wrapped in lens paper and entirely submitt ed for microscopic examination, 2 pieces in cassette B. [facility] Copies To: Sherman Ovalles MD [address] [place] [id number] CONTINUED ON NEXT PAGE ----- Name: Fab Maciel Age/Sex: 44/F : 1980 Unit#: [id number] Attend Dr: Sherman Ovalles MD Re09/06/24 Status : [facility] [place] Location: [facility] Disch: ----- SPEC : [id number] RECD: 09/06/24-1034 STATUS: VICKIE MORALES NUM: [id number] KRUPA: 09/06/24-[address] [facility] [address]: Sherman Ovalles MD ENTERED: 09/06/24- 52 SP TYPE: Surgical OTHR DR: Wilber Choi DO ORDERED: Gross Micro L4/2 Copies To: (Continued) Wilber Choi DO [facility] [address] [place] [id number] ----- Signed (signature on file) Shirlene Barillas 09/09/24 1034 ----- END OF REPORT Reason For Referral No Information Medications Medication SIG (Take, Route, Frequency, Duration) Notes Start Date End Date Status Escitalopram Oxalate 10 MG TAKE 1 TABLET BY MOUTH EVERY DAY FOR 90 DAYS Oral for 90 Active Social History Tobacco Use: Social History Observation Description Date Details (start date - stop date) Former Smoker NA - NA Tobacco Use/Smoking Question Answer Notes Patient is a former smoker How long has it been since you last smoked? 5-10 years Alcohol Screen Question Answer Notes Did you have a drink containing alcohol in the p ast year? No Points 0 Interpretation Negative Section Notes: quit 2015 tobacco Problems Problem Type SNOMED Code ICD Code Onset Dates Problem Status W/U Status Risk Notes Problem 570000790 Colon cancer screening (Z12.11) Active confirmed Problem 542357211 Encounter for other preprocedural examination (Z01.818) Active confirmed Vital Signs Blood pressure diastolic 00 mm Hg 08/01/2024 Height 5 ft 9 in in 08/01/2024 Blood pressure systolic 00 mm Hg 08/01/2024 Weight 226 lbs 08/01/2024 BMI 33.37 kg/m2 08/01/2024 Encounters Encounter Location Date Provider Diagnosis [facility] [address] [place] [phone] 09/06/2024 Sherman Ovalles Jr Colon cancer screening Z12.11 and Colon polyps K63.5 [facility] [address] [place] [phone] 08/01/2024 Sherman Ovalles Jr Colon cancer screening Z12.11 and Encounter for other preprocedural examination Z01.818 [facility] [address] [place] [phone] 09/12/2024 Sherman Ovalles Jr Assessments Encounter Date Diagnosis (ICD Code) Assessment Notes Treatment Notes Treatment Clinical Notes Section Notes 09/06/2024 Colon cancer screening (ICD-10 - Z12.11) 09/06/2024 Colon polyps (ICD-10 - K63.5) 08/01/2024 Colon cancer screening (ICD-10 - Z12.11) Colonoscopy material was printed We discussed colonoscopy today. We discussed risks and benefits of the procedure today. She understands these and agrees to proceed. This will be scheduled at her convenience. 08/01/2024 Encounter for other preprocedural examination (ICD-10 - Z01.818) We discussed colonoscopy today. We discussed risks and benefits of the procedure today. She understands these and agrees to proceed. This will be scheduled at her convenience. Plan Of Treatment Future Test Test Name Order Date COLONOSCOPY 08/01/2024 Insurance Providers Payer Name Payer Address Payer Phone Subscriber Number Group Number Insured Name Patient Relationship to Insured Coverage Start Date Coverage End Date [employer] [address] [place] [address] [id number] FAB MACIEL Self - patient is the insured Medical (General) History Medical History History ICD Code Nephrolithiasis, 2009 Anxiety Surgical History Surgery Date(Month/Year) section 2009 [facility] teeth extractions
--- OUTSIDE RECORDS SUMMARY | 2024-11-19 13:45 | XMS_ITS ---
Author Organization [facility] Address [address] [place] [phone] Care Team Providers Care Patient Services Rep Name Role Phone Jimbo (RETIRED) Wilber JIMENEZ Primary Care Provid er Unavailable Sherman Ovalles Jr [phone] REASON FOR VISIT screening Encounters Encounter Location Date Provider Diagnosis [facility] [place] [facility] [address] [place] [phone] 09/06/2024 Sherman Ovalles Jr Colon cancer screening Z12.11 and Colon polyps K63.5 Assessments Encounter Date Diagnosis (ICD Code) Assessment Notes Treatment Notes Treatment Clinical Notes Section Notes 09/06/2024 Colon cancer screening (ICD-10 - Z12.11) 09/06/2024 Colon polyps (ICD-10 - K63.5) Plan Of Treatment No Information Progress Notes * ALFREDO FAB PINONDOB:1 09/10/1979 (44 yo F)Acc No.[id number]:09/06/2024 COLON WITH MAC Patient:?HARRISON LIMGilberto Provider:?Sherman Ovalles MD :1980???Age:44 Y???Sex:Female D ate:09/06/2024 Address[id number] Pcp:Wibler Choi (RETIRE D), DO Subjective: * Chief Complaints: * ???1. Screening. * Medical History:? Objective: * Vitals:? Assessment: * Assessment: 1.?Colon cancer screening - Z12.11 (Primary)???2.?Colon polyps - K63.5??? Plan: * Treatment: * Procedure Codes:?59361 LESIO N REMOVAL COLONOSCOPY, 26592 COLONOSCOPY AND BIOPSY, Modifiers: 59 * * The named appointment provid er may or may not be the originator of this progress note, and it is not deemed complete until electronically signed by the appointment provider. Sign off status: Pending * Provider:?Sherman Ovalles MD Date:?0 09/06/2024 Generated for Deo arellano/Hudson/Anuragitting on:?11/19/2024 01:45 PM EDT
--- OUTSIDE RECORDS SUMMARY | 2024-11-19 13:45 | XMS_ITS ---
Author Organization [facility] Address [address] [place] [phone] Care Team Providers Care Integrity Engineer Name Role Phone Jimbo (RETIRED) Wilber JIMENEZ Primary Care Provid er Unavailable Sherman Ovalles Jr [phone] REASON FOR VISIT pathology/ 10 yr colon recall Encounters Encounter Location Date Provider Diagnosis [facility] [address] [place] [phone] 09/12/2024 Sherman Ovalles Jr Plan Of Treatment No Information Progress Notes * FAB LIMDOB:1 09/10/1979 (44 yo F)Acc No.[id number]:09/12/2024 Patient:?HARRISON LIM :1980???Age:44 Y???Sex:Female Address:[address] [place], [address] * true * Date:? Generated for Niharikai eileen/Hudson/eTransmitting on:?11/19/2024 01:45 PM EDT
--- OUTSIDE RECORDS SUMMARY | 2024-11-19 13:45 | XMS_ITS ---
Author Organization [facility] Address [address] [place] [phone] Care Team Providers Care Regulator Pin Inserter Name Role Phone Jimbo (RETIRED) Wilber JIMENEZ Primary Care Provid er Unavailable Sherman Ovalles Jr Unavailable Allergies Allergen (clinical drug ingredient) Drug/Non Drug Allergy documented on EMR Reaction Allergy Type Onset Date Status Substance with sulfonamide structure and antibacterial mechanism of action (substance) Sulfa Antibiotics Unknown Drug Allergy Active Alupent Unknown Drug Allergy Active REASON FOR VISIT Patient presents today for a screening colonoscopy Medications Medication SIG (Take, Route, Frequency, Duration) [...] Points 0 Interpretation Negative Section Notes: quit 2016 tobacco Problems Problem Type SNOMED Code ICD Code Onset Dates Problem Status W/U Status Risk Notes Problem 502934008 Colon cancer screening (Z12.11) Active confirmed Problem 654226611 Encounter for other preprocedural examination (Z01.818) Active confirmed Vital Signs Blood pressure systolic 00 mm Hg 08/01/20 24 Blood pressure diastolic 00 mm Hg 024 Height 5 ft 9 in in 08/01/2024 Weight 226 lbs 08/01/2024 BMI 33.37 kg/m2 08/01/2024 Encounters Encounter Location Date Provider Diagnosis [facility] [address] [place] [address] 08/01/2024 Sherman Ovalles Jr Colon cancer screening Z12.11 and Encounter for other preprocedural examination Z01.818 Assessments Encounter Date Diagnosis (ICD Code) Assessment Notes Treatment Notes Treatment Clinical Notes Section Notes 08/01/2024 Colon cancer screening (ICD-10 - Z12.11) [...] scheduled at her convenience. Plan Of Treatment Treatment Notes Assessment Notes Colon cancer screening Colonoscopy mater ial was printed Future Test Test Name Order Date COLONOSCOPY 08/01/2024 Next Appt Details Follow Up: 1 Year, Reason: Progress Notes * SAYDA PINONFABDOB:1 09/10/1979 (44 yo F)Acc No.[id number]:08/01/2024 Progress Notes Patient:?HARRISON LIM Provider:?Sherman Ovalles MD :1980???Age:44 Y???Sex:Female D ate:08/01/2024 Address: [address] [facility] [address] [facility] Pcp:Wilber Choi, DO Subjective: * Chief Complaints: * ???1. Patient presents today for a screening colonoscopy. * HPI: ???New symptom(s):? The patient is a pleasant 44-year-old woman seen today for her first preoperative colonoscopy visit. She feels well, and has no complaints of rectal bleeding, abdominal pain, or rectal pain. Weight and appetite have been stable and bowel movements have been normal. * ROS:?General/Constitutional:?Change in appetite?denies.?Fatigue?denies.?ENT:?Patient denies?difficulty swallowing.?Respiratory:?Patient denies?shortness of breath.?Cardiovascular:?Patient denies?chest pain.?Gastrointestinal:?Comments?See HPI for details.?Genitourinary:?Difficulty urinating?denies.?Incontinence?denies.?Musculoskeletal:?Patient denies?muscle aches.?Skin:?Patient denies?pruritis.?Neurologic:?Patient denies?low back pain.?Psychiatric:?Patient denies?mental or physical abuse.? * Medical History:?Nephrolithi asis, 2009, Anxiety. * Surgical History:? s ection 2010, [facility] teeth extractions . * Family History:?Father: dece ased 95 yrs.?Mother: alive, type II controlled , diagnosed with Diabetes.? no known hx of colon cancer. * Social History:?Tobacco Use:?Tobacco Use/Smoking?Patient is a?former smoker,?How long has it been since you last smoked??5-10 years.?Drugs/Alcohol:?Alcohol Screen?Did you have a drink containing alcohol in the past year??No,?Points?0,?Interpretation?Negative.?Miscellaneous:?Marital status: . 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 ???quit 2016 tobacco. * Medications:?Taking Escitalo pram Oxalate 10 MG Tablet TAKE 1 TABLET BY MOUTH EVERY DAY FOR 90 DAYS Oral , Medication List reviewed and reconciled with the patient * Allergies:?Sulfa Antibiotics , Alupent. Objective: * Vitals:?Wt: 226 lbs, Ht: 5 f t 9 in, BMI:33.37 Index, BP: 00/00 mm Hg. * Examination: ???General Examination: ?GENERAL APPEARANCE:?in no acute distress.?HEAD:?normocephalic.?EYES:?sclera non-icteric.?ORAL CAVITY:?mucosa moist.?NECK/THYROID:?no lymphadenopathy.?SKIN:?anicteric.?HEART:?S1, S2 normal, no murmurs.?LUNGS:?clear to auscultation bilaterally.?CHEST:?normal shape and expansion.?ABDOMEN:?soft, nontender, nondistended, bowel sounds present, no organomegaly .?EXTREMITIES:?no clubbing, cyanosis, or edema.?PSYCH:?cognitive function intact.? Assessment: * Assessment: 1.?Encounter for other prepr ocedural examination - Z01.818 (Primary)?2.?Colon cancer screening - Z12.11? We discussed colonoscopy toanam latham. We discussed risks and benefits of the procedure today. She understands these and agrees to proceed. This will be scheduled at her convenience. Plan: * Treatment: Notes: Colonoscopy material was printed?? * Procedure Codes:?3017F COLOR ECTAL CA SCREEN DOC REV, G9903 Pt scrn tbco id as non user, G9745 DOC RSN FOR NOT SCREEN/REC F/U HBP * Preventive Medicine:? ??Counseling:?Care goal follow-up plan:?Above Normal BMI Follow-up?Giving encouragement to exercise,?BMI management provided?Yes.? * Follow Up:?1 Year * * Sign off status: Completed true * Provider:?Sherman Ovalles MD Date:?1 10/02/2023 Generated for Deo arellano/Hudson/eTransmitting on:?11/19/2024 01:45 PM EDT History and Physical Notes * HPI (History of Present Illness) Category Sub-Category Detail Notes Category Not es New symptom(s) The patient i s a pleasant 44-year-old woman seen today for her first preoperative colonoscopy visit. She feels well, and has no complaints of rectal bleeding, abdominal pain, or rectal pain. Weight and appetite have been stable and bowel movements have been normal. Examination Category Sub-Category Detail Notes Category Not es General Examination GENERAL APPEARANCE: in no acute di stress HEAD: normocephalic EYES: sclera non-icteric NECK/THYROID: no lymphadenopathy HEART: S1, S2 normal, no mu rmurs CHEST: normal shape and exp ansion LUNGS: clear to auscultatio n bilaterally ABDOMEN: soft, nontender, non distended, bowel sounds present, no organomegaly SKIN: anicteric EXTREMITIES: no clubbing, cyanosi s, or edema PSYCH: cognitive function i ntact ORAL CAVITY: mucosa moist
== END 2024-11-19 12:07 | disposition home or self-care (01) ==
LOC: HO.HMCSH 11:15
PROVIDERS: PCP Internal Medicine; Visit Provider Internal Medicine
DX: F32.A Depression, unspecified (principal); M25.511 Pain in right shoulder

== ENCOUNTER → 2024-11-19 11:15 | Outpatient (BNVA) | payer BC, SELFPAY | PROVIDERS: PCP Internal Medicine; Visit Provider Internal Medicine | DX: Z13.89 Encounter for screening for other disorder (principal) ==

== ENCOUNTER 2025-03-10 08:43 | Outpatient (REF) | payer BC, SELFPAY ==
--- OUTSIDE RECORDS SUMMARY | 2025-03-10 09:10 | XMS_ITS | Clinical Summary ---
Author Organization [facility] Address [address] [place] [phone] Phone Care Team Providers Care Chiseler Head Name Role Phone Wilber Choi DO Primary Care Provider [phone] Social History Tobacco Use Types Packs/Day Years Used Date Smoking Tobacco: Never Assessed Education Answer Date Recorded Are you interested in more education? Not on mercedes e 12/09/2022 Are you concerned about learning? Not on file 12/09/2022 No 12/09/2022 No 12/09/2022 Digital Access Answer Date Recorded No 01/07/2023 No 01/07/2023 No 01/07/2023 Reliable internet access at home? Not on file 01/07/2023 Device with a working camera? Not on file Comments Unknown Sex and Gender Information Value Date Recorded Sex Assigned at Not on file Legal Sex Female 10:25 AM EST Gender Identity Not on file Sexual Orientation Not on file Plan of Treatment Health Maintenance Due Date Last Done Comments Adult Td,Tdap Booster 1980 LIPID PANEL 1978 DEPRESSION SCREENING 1990 SMOKING Hx and SMOKELESS TOB ACCO SCREENING 1991 HEPATITIS C SCREENING 1996 HIV ONE-TIME SCREENING (18-6 5 YEARS) 1996 PAP SMEAR 1999 MAMMOGRAM 2018 COLOGUARD 2023 COLONOSCOPY 2023 COLORECTAL CANCER SCREENING 2023 FIT TEST 2023 FOBT 2023 SIGMOIDOSCOPY 2023 VIRTUAL COLONOSCOPY 2023 COVID-19 VACCINE (2 - 2024-2 5 season) 2024 11/16/2020 HEPATITIS A VACCINES Aged Out No long er eligible based on patient's age to complete this topic HIB VACCINES Aged Out No longer eligi ble based on patient's age to complete this topic MENINGOCOCCAL VACCINES (ACWY) Aged Out No longer eligible based on patient's age to complete this topic MENINGOCOCCAL VACCINES (B) Aged Out N o longer eligible based on patient's age to complete this topic PNEUMOCOCCAL VACCINES (0-49 years) Aged Out No longer eligible based on patient's age to complete this topic Medical Devices Not on file [facility] POS [facility] H[facility] POS [facility] POS [facility] [place] [address] [place] [id number] [facility] [place] [place] [address] [place] [address] HMO POS [facility] HMO POS Care Teams Chiseler Head Relationship Specialty Start Date End Date Wilber Choi DO [address] [place] [phone] PCP - General Internal Medicine 07/31/20 Additional Source Comments The information contained in this document represents components of the legal health record. It is not the complete legal health record.[facility]
[2025-03-10 10:17] LABS: Hematocrit 40.9 % (37.0-47.0); Hemoglobin 13.8 g/dl (12.0-16.0); Mean Corpuscular HGB Conc 33.7 g/dl (31.0-35.0); Mean Corpuscular Hemoglobin 29.6 pg (27.0-33.0); Mean Corpuscular Volume 87.8 fL (80.0-98.0); NRBC Abs Auto 0.000 X10*3/uL (0.0-0.012); NRBC Pct Auto 0.0 /100WBC (0.0-0.2); Platelet Count 276 X10*3/uL (160-400); Red Blood Count 4.66 X10*6/uL (4.20-5.50); White Blood Count 6.5 X10*3/uL (4.8-10.8)
[2025-03-10 11:01] LABS: Alanine Aminotransferase 40 U/L (0-31); Albumin Level 4.4 g/dL (3.5-5.0); Alkaline Phosphatase 64 U/L (39-117); Anion Gap 15 (12-20); Aspartate Amino Transferase 33 U/L (5-31); Blood Urea Nitrogen 9 mg/dL (9-16); Calcium 9.2 mg/dL (8.4-10.2); Carbon Dioxide 22 mmol/L (22-29); Chloride 107 mmol/L (96-108); Cholesterol 194 mg/dL (<200); Estimated Glomerular Filt Rate > 60; HDL Cholesterol 47 mg/dL (>40); Potassium 4.4 mmol/L (3.3-5.1); Sodium 140 mmol/L (135-145); Thyroid Stimulating Hormone 3.93 uIU/mL (0.32-4.0); Total Protein 6.9 g/dL (6.5-8.0); Triglycerides 247 mg/dL (<150)
[2025-03-10 11:15] LABS: Appearance Urine Clear; Glucose Urine UA Negative (Negative); PH 6.0 (5.0-9.0); Specific Gravity - Urine 1.015 (1.005-1.025)
== END 2025-03-10 08:44 | disposition home or self-care (01) ==
LOC: HO.HMGCLDS 08:43
PROVIDERS: PCP Internal Medicine; Visit Provider Internal Medicine
DX: F32.A Depression, unspecified (principal)
CPT/HCPCS: 36415; 80048; 80061; 80076; 81003; 84443; 85027

== ENCOUNTER 2025-04-21 10:56 | Outpatient (AMB) | payer BC, SELFPAY ==
[2025-04-21 11:03] VITALS: BP 134/80; PULSE 70; RESP 14; TEMP 36.8; O2SAT 99; BMI 39.8
--- NOTE | 2025-04-21 11:03 | A.OFFPC_ITS ---
Vital Signs 04/21/25 11:03 Height 5 ft 8 in Weight 262 lb BMI 39.8 BP 134/80 Respiration 14 Pulse 70 Pulse Source Pulse Oximeter Temp 98.2 F Temp Source Temporal Artery Scan Pulse Oximetry (%) 99 Oxygen Delivery Method Room Air Intake Visit Reasons: swollen feet - see comments Biometrics Experimentalist Required: No Accompanied by: Self / Same As Patient Allergies metaproterenol (From ALUPENT) Allergy (Severe, Verified 04/21/25 11:04) RAPID HEART RATE nut - unspecified (NUTS) Allergy (Severe, Verified 04/21/25 11:04) THROAT CLOSES Sulfa (Sulfonamide Antibiotics) (SULFA (SULFONAMIDE ANTIBIOTICS)) Allergy (Severe, Verified 04/21/25 11:04) RASH Tobacco use date assessed: 04/21/25 Dental Screening Dental Screen Date: 11/19/24 [facility] Medical History Right shoulder pain SOB (shortness of breath) Cough Upper respiratory infection Enlarged lymph node Acute bacterial bronchitis Anxiety disorder History of pneumonia Bulimia nervosa Eating disorder Depression Asthma Nephrolithiasis Periodic limb movement disorder Somnolence, daytime Snoring Retrognathia Obesity (BMI 30-39.9) Surgical History History of colonoscopy (~09/06/24) Hx of wisdom tooth extraction Hx of section Family History Father COPD (chronic obstructive pulmonary disease) Macular degeneration Smoker Mother Diabetes Social History Housing: House Are you a primary child care associate to a significant other at home: No Do you presently have visiting nurse or other home services: No Alcohol intake: current Alcohol intake frequency: does not drink Patient Tobacco Use Status: Former Tobacco user Years Smoked: 16 service: No Current occupational status: employed Cognitive needs: No Hearing needs: No Vision needs: Yes (reading glasses) Questionnaire PHQ-9 Over the last 2 weeks, how often have you been bothered by any of the following problems? 1. Little interest or pleasure in doing things: not at all 2. Feeling down, depressed, or hopeless: not at all 3. Trouble falling or staying asleep, or sleeping too much: not at all 4. Feeling tired or having little energy: not at all 5. Poor appetite or overeating: not at all 6. Feeling bad about yourself - or that you are a failure or have let yourself or your family down: not at all 7. Trouble concentrating on things, such as reading the newspaper or watching television: not at all 8. Moving or speaking so slowly that other people could have noticed. Or the opposite - being so fidgety or restless that you have been moving around a lot more than usual: not at all 9. Thoughts that you would be better off or of hurting yourself in some way: not at all Total score: 0 Source: Developed by Drs. Wilber Villalobos, Barbie Fulton, Kye Kellogg and colleagues, with an educational radha from [employer]. Thrive Questionnaire Date Thrive assessed: 11/19/24 I am a: Patient What is your living situation today?: I have a steady place to live Within the past 12 months, did the food you bought not last and you didn't have the money to get more?: Never true Within the past 12 months, did you worry whether your food would run out before you got money to buy more?: Never true Do you have trouble paying for medicines?: No Do you have trouble getting transportation to medical appointments?: No Do you have trouble paying your heating and electricity bill?: No Do you have trouble taking care of your child, family member or friend?: No Do you have trouble with day-to-day activities such as bathing, preparing meals, shopping, managing finances, etc.?: No Are you currently unemployed and looking for a job?: No Are you interested in more education?: No Please select the resources that you would like help with: None THRIVE Score: 0 AUDIT C Alcohol Use Questionnaire (AUDIT-C) 1. How often do you have a drink containing alcohol?: Never 3. How often do you have six or more drinks on one occasion?: Never Total Score: 0 TEVIN-7 AMB Questionnaire TEVIN-7 Date TEVIN - 7 assessed: 11/19/24 Feeling nervous, anxious, or on edge: 0 = Not at all Not being able to stop or control worryin = Not at all Worrying too much about different things: 0 = Not at all Trouble relaxin = Not at all Being so restless that it is hard to sit still: 0 = Not at all Becoming easily annoyed or irritable: 0 = Not at all Feeling afraid as if something awful might happen: 0 = Not at all Total TEVIN-7 score (0-4 normal; 5-9 mild; 10-14 moderate; 15-21 severe): 0 Source: Developed by Drs. Wilber Villalobos, Barbie Fulton, Kye Kellogg and colleagues, with an educational radha from [employer]. Physical exam (Primary Care) Vital Signs: Last Vital Signs Temp 98.2 F 04/21/25 11:03 Pulse 70 04/21/25 11:03 Resp 14 04/21/25 11:03 BP 134/80 04/21/25 11:03 Pulse Ox 99 04/21/25 11:03 Oxygen Delivery Method Room Air 04/21/25 11:03 BMI result Body Mass Index 39.8 Tobacco/Smoking Status: Tobacco use Status Tobacco use date assessed 04/21/25 04/21/25 11:14 Patient Tobacco Use Status Former Tobacco user 04/21/25 11:14 Tobacco use type 11/19/24 11:16 PHQ-9: PHQ-9 Score PHQ-9: Total score 0 04/21/25 11:20 Thrive Assessment: Date of Thrive Assessment Date Thrive assessed 11/19/24 04/21/25 11:14 Coding Level of Care Code Est Pt Level 4 (75823) Complex EM visit Add On G2211 Diagnoses Depression F32.A Obesity (BMI 30-39.9) E66.9 Edema of both feet R60.0 Assessment & Plan Assessment & Plan (1) Depression: Code(s): F32.A - Depression, unspecified Category: Medical Plan: patient needs to see a mental health provider. Rapid weight gain in the past few months. Already on an SSRI (2) Obesity (BMI 30-39.9): Code(s): E66.9 - Obesity, unspecified Category: Medical Plan: Zepbound ordered. Will appeal the denial for the weight loss medication (3) Edema of both feet: Code(s): R60.0 - Localized edema Plan: US of the lower ext ordered. Plan History of Present Illness - The patient is a 44-year-old female presenting with bilateral foot and ankle pain, right leg swelling, and weight gain. - Plantar fasciitis: Reports heel and arch pain, more on the right, worsening with weight-bearing. Stretching provides some relief. - Right leg swelling: More pronounced on the right, worsening by day's end, normal in the morning. Doppler ultrasound planned to rule out a blood clot. - Weight gain: 30-pound increase since last visit, linked to anxiety and depression. Undergoing therapy and on escitalopram. History of bulimia noted. Social History - The patient is employed and actively engaged in therapy for anxiety and dep ression. - She has a history of bulimia in her 20s and 30s. Review of Systems - Musculoskeletal: Reports bilateral foot and ankle pain, more pronounced on the right. Denies any recent trauma. - Vascular: Reports right leg swelling, worsening by the end of the day, normal in the morning. - Psychiatric: Reports anxiety and depression, currently in therapy and on escitalopram. Physical Exam General: Cooperative and healthy appearing Nutritional Appearance: Well nourished Orientation/consciousness: Patient oriented x3 Limitations: No limitations Head: Normal to inspection General: Appearance normal, both eyes and all related structures Neck: Normal visual inspection Chest: Normal palpation of entire chest wall Respiratory: Normal respiratory effort Neurology: Patient oriented x3 Lower Ext: No erythema, pitting edema, left leg. No calf tenderness Results - Labs: Blood work in February showed no anemia, slightly elevated sugars and liver functions, cholesterol levels within normal limits. Plan 1. Plantar Fasciitis - Continue stretching exercises and supportive footwear to alleviate symptoms. 2. Right Leg Swelling - Doppler ultrasound ordered to rule out deep vein thrombosis. - Prescribed furosemide for 30 days to reduce swelling. 3. Weight Gain - Discussed weight management strategies and the need for a comprehensive plan to address weight gain. - Recommended seeing a psychiatrist for potential adjustment of antidepressant therapy. 4. Anxiety And Depression - Continue current therapy and escitalopram. Consider psychiatric evaluation for medication adjustment. 5. History Of Bulimia - Monitor for any recurrence of eating disorder behaviors. Encourage ongoing therapy. Discussion Notes I discussed with the patient the need for a Doppler ultrasound to rule out a blood clot due to the right leg swelling. We also talked about the denial of Zepbound by the insurance and the steps to appeal or explore alternative options. I advised on continuing therapy and medication for anxiety and depression, and the potential need for psychiatric evaluation for medication adjustment. We also discussed the importance of weight management and the role of supportive footwear and stretching exercises for plantar fasciitis. Patient Instructions - Continue stretching exercises and wear supportive footwear for foot pain. - Take furosemide as prescribed to reduce leg swelling. - Follow up with the insurance company regarding the appeal for Zepbound. - Continue therapy and medication for anxiety and depression. - Schedule a psychiatric evaluation for potential medication adjustment. Orders: Orders US venous duplex LE LT Today I82.409 - Acute embolism and thrombosis of unspecified deep veins of unspecified lower extremity, R60.0 - Localized edema US venous duplex LE RT Today R60.0 - Localized edema Medications: New furosemide (Lasix) 20 mg PO DAILY 30 tabs 0RF
--- OUTSIDE RECORDS SUMMARY | 2025-04-21 13:22 | XMS_ITS | Clinical Summary ---
Author Organization [facility] Address [address] [facility] [address] [place] [phone] Phone Care Team Providers Care Sales Floor Team Member Name Role Phone Wilber Choi DO Primary Care Provider Social History Tobacco Use Types Packs/Day Years [...] DEPRESSION SCREENING 1990 SMOKING Hx and SMOKELESS TOBACCO SCREENING 1991 HEPATITIS C SCREENING 1996 HIV ONE-TIME SCREENING (18-65 YEARS) 1996 PAP SMEAR 1999 MAMMOGRAM 2018 COLOGUARD 2023 COLONOSCOPY 2023 COLORECTAL CANCER SCREENING 2023 FIT TEST 2023 FOBT 2023 SIGMOIDOSCOPY 2023 VIRTUAL COLONOSCOPY 2023 INFLUENZA VACCINE (#1) 2025 0, 05/10/2018, 05/10/2017, Additional history exists COVID-19 VACCINE ( season) 2025 11/16/2020 HEPATITIS A VACCINES Aged Out No [...] topic Medical Devices Not on file Insurance [facility] H[facility] POS Care Teams Sales Floor Team Member Relationship Specialty Start Date End Date Wilber Choi DO [address] [place] [id number] PCP - General Internal Medicine 07/31/20 Additional Source Comments The information contained in this document represents components of the legal health record. It is not the complete legal health record.[facility]
== END 2025-04-21 11:33 | disposition home or self-care (01) ==
LOC: HO.HMCSH 10:56
PROVIDERS: PCP Internal Medicine; Visit Provider Internal Medicine
DX: F32.A Depression, unspecified (principal); E66.9 Obesity, unspecified; R60.0 Localized edema

== ENCOUNTER 2025-04-22 15:50 | Outpatient (REF) | payer BC, SELFPAY ==
--- NOTE | ~2025-04-22 | US_ITS ---
EXAMINATION: US TRIPLEX LOWER EXTREMITY, BILATERAL CLINICAL INFORMATION: Right lower extremity edema COMPARISON: None available. TECHNIQUE: Color-flow triplex imaging with spectral analysis and compression Doppler were performed on the bilateral lower extremities. FINDINGS: Respiratory variation, normal compression and augmented flow are noted throughout the bilateral lower extremities. The visualized common femoral vein, superficial femoral vein, profunda femoral vein, popliteal vein and midcalf peroneal and posterior tibial venous segments show no evidence of deep venous thrombosis bilaterally. US/US venous duplex LE BI IMPRESSION: No evidence of deep venous thrombosis involving the bilateral lower extremities. Electronically signed by: Cali Thomas MD 04/22/2025 04:27 PM EDT
--- OUTSIDE RECORDS SUMMARY | 2025-04-22 18:01 | XMS_ITS | Clinical Summary ---
Author Organization [facility] Address [address] [facility] [address] [place] [phone] Phone Care Team Providers Care Health Care Sanitary Technician Name Role Phone Wilber Choi DO Primary [...] topic Medical Devices Not on file Insurance [facility] HMO POS [facility] HMO POS [facility] POS Care Teams Health Care Sanitary Technician Relationship Specialty Start Date End Date Wilber Choi DO [address] [place] [phone] PCP - General Internal Medicine 07/31/20 Additional Source Comments The information contained in this document represents components of the legal health record. It is not the complete legal health record.[facility]
== END 2025-04-22 15:51 | disposition home or self-care (01) ==
LOC: HO.US 15:50
PROVIDERS: Visit Provider Internal Medicine
DX: R60.0 Localized edema (principal)
CPT/HCPCS: 93970

== ENCOUNTER → 2025-04-22 15:54 | Outpatient (BNV) | payer BC, SELFPAY | PROVIDERS: Visit Provider Radiology Diagnostic Radiology | DX: R60.0 Localized edema (principal) | CPT/HCPCS: 93970 ==

== ENCOUNTER 2025-06-02 11:58 | Outpatient (AMB) | payer BC, SELFPAY ==
--- NOTE | 2025-06-02 11:50 | MHC.PC.OV ---
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 Required: No Accompanied by: Self / Same As Patient Allergies metaproterenol (From ALUPENT) Allergy (Severe, Verified 06/02/25 11:51) RAPID HEART RATE nut - unspecified (NUTS) Allergy (Severe, Verified 06/02/25 11:51) THROAT CLOSES Sulfa (Sulfonamide Antibiotics) (SULFA (SULFONAMIDE ANTIBIOTICS)) Allergy (Severe, Verified 06/02/25 11:51) RASH Tobacco use date assessed: 06/02/25 Dental Screening Dental Screen Date: 06/02/25 Did you have a dental visit in the last 12 months?: Yes Was dental information given to patient?: Patient has dentist [facility] Medical History Right shoulder pain SOB (shortness of breath) Cough Upper respiratory infection Enlarged lymph node Acute bacterial bronchitis Anxiety disorder History of pneumonia Bulimia nervosa Eating disorder Depression Asthma Nephrolithiasis Periodic limb movement disorder Somnolence, daytime Snoring Retrognathia Obesity (BMI 30-39.9) Surgical History History of colonoscopy (~09/06/24) Hx of wisdom tooth extraction Hx of section Family History Father COPD (chronic obstructive pulmonary disease) Macular degeneration Smoker Mother Diabetes Social History Housing: House Are you a primary care professionals to a significant other at home: No Do you presently have visiting nurse or other home services: No Alcohol intake: current Alcohol intake frequency: does not drink Patient Tobacco Use Status: Former Tobacco user Years Smoked: 16 service: No Current occupational status: employed Cognitive needs: No Hearing needs: No Vision needs: Yes (reading glasses) Questionnaire PHQ-9 Over the last 2 weeks, how often have you been bothered by any of the following problems? 1. Little interest or pleasure in doing things: not at all 2. Feeling down, depressed, or hopeless: not at all 3. Trouble falling or staying asleep, or sleeping too much: not at all 4. Feeling tired or having little energy: not at all 5. Poor appetite or overeating: not at all 6. Feeling bad about yourself - or that you are a failure or have let yourself or your family down: not at all 7. Trouble concentrating on things, such as reading the newspaper or watching television: not at all 8. Moving or speaking so slowly that other people could have noticed. Or the opposite - being so fidgety or restless that you have been moving around a lot more than usual: not at all 9. Thoughts that you would be better off or of hurting yourself in some way: not at all Total score: 0 Source: Developed by Drs. Wilber Villalobos, Barbie Fulton, Kye Kellogg and colleagues, with an educational radha from [employer]. Thrive Questionnaire Date Thrive assessed: 06/02/25 I am a: Patient What is your living situation today?: I have a steady place to live Within the past 12 months, did the food you bought not last and you didn't have the money to get more?: Never true Within the past 12 months, did you worry whether your food would run out before you got money to buy more?: Never true Do you have trouble paying for medicines?: No Do you have trouble getting transportation to medical appointments?: No Do you have trouble paying your heating and electricity bill?: No Do you have trouble taking care of your child, family member or friend?: No Do you have trouble with day-to-day activities such as bathing, preparing meals, shopping, managing finances, etc.?: No Are you currently unemployed and looking for a job?: No Are you interested in more education?: No Please select the resources that you would like help with: None THRIVE Score: 0 AUDIT C Alcohol Use Questionnaire (AUDIT-C) 1. How often do you have a drink containing alcohol?: Never 3. How often do you have six or more drinks on one occasion?: Never Total Score: 0 TEVIN-7 AMB Questionnaire TEVIN-7 Date TEVIN - 7 assessed: 06/02/25 Feeling nervous, anxious, or on edge: 0 = Not at all Not being able to stop or control worryin = Not at all Worrying too much about different things: 0 = Not at all Trouble relaxin = Not at all Being so restless that it is hard to sit still: 0 = Not at all Becoming easily annoyed or irritable: 0 = Not at all Feeling afraid as if something awful might happen: 0 = Not at all Total TEVIN-7 score (0-4 normal; 5-9 mild; 10-14 moderate; 15-21 severe): 0 Source: Developed by Drs. Wilber Villalobos, Barbie Fulton, Kye Kellogg and colleagues, with an educational radha from [employer]. Physical exam (Primary Care) Vital Signs: Last Vital Signs Temp 98.1 F 06/02/25 11:51 Pulse 74 06/02/25 11:51 BP 126/59 L 06/02/25 11:51 Pulse Ox 96 06/02/25 11:51 Oxygen Delivery Method Room Air 06/02/25 11:51 BMI result Body Mass Index 39.0 Tobacco/Smoking Status: Tobacco use Status Tobacco use date assessed 06/02/25 06/02/25 11:52 Patient Tobacco Use Status Former Tobacco user 06/02/25 11:52 Tobacco use type 11/19/24 11:16 PHQ-9: PHQ-9 Score PHQ-9: Total score 0 06/02/25 12:03 Thrive Assessment: Date of Thrive Assessment Date Thrive assessed 06/02/25 06/02/25 11:52 Office Procedures Flu Questionnaire Does the patient have a severe egg allergy?: No Does the patient have severe life threatening allergies?: No Does the patient have a fever or illness today?: No Has the patient ever had Guillain-Steedman Syndrome?: No Has the patient ever had any past reaction to a flu shot?: No Immunizations Fluarix [id number] (PF) 45 mcg (15 mcg x 3)/0.5 mL IM syringe Performing Provider: Michael Tam MD [facility] Documented (not given) by: Yamila Modi CMA on 10/20/25 12:06 Reason Not Given: Received Previously Coding Level of Care Code Est Pt Level 4 (72102) Complex EM visit Add On G2211 Diagnoses Depression F32.A Assessment & Plan Assessment & Plan (1) Depression: Code(s): F32.A - Depression, unspecified Category: Medical Plan: History of Present Illness - The patient is a 44-year-old female presenting with plantar fasciitis, anxiety, knee pain, and weight management. - Plantar fasciitis has been causing persistent pain, with some improvement in swelling after taking a diuretic for one month. - The patient has been performing stretching exercises and fasting, which seem to alleviate the inflammation and pain. - Anxiety is being managed with citalopram, and the patient is incorporating exercise and playing piano to improve mental health. - Knee pain is attributed to a twisting injury, with swelling present at the front of the knee. - The patient occasionally uses a brace for support, which is helping with the recovery. - Weight management is a concern due to insurance not covering weight loss medication for non-diabetics. - The patient has been fasting and has lost some weight, but is considering options for weight loss medication. - Preventative care includes receiving an influenza vaccination. Social History - The patient is employed and expresses satisfaction with her work. - She is engaging in exercise and has resumed playing the piano as part of her self-care routine. Review of Systems - Musculoskeletal: Reports plantar fasciitis with persistent pain and knee pain due to twisting injury. Denies other joint pain. - Psychiatric: Reports anxiety, managed with citalopram. Denies depression. - General: Reports weight management concerns. Denies significant weight loss or gain outside of fasting efforts. Physical Exam General: Cooperative and healthy appearing Nutritional Appearance: Well nourished Orientation/consciousness: Patient oriented x3 Limitations: No limitations Head: Normal to inspection General: Appearance normal, both eyes and all related structures Neck: Normal visual inspection Chest: Normal palpation of entire chest wall Respiratory: Breath sounds normal with deep and normal breathing. ormal respiratory effort Neurology: Patient oriented x3. No signs of anxiety, well-managed with citalopram. Results - Ultrasound: Conducted on the right leg, results were normal. Plan - Continue stretching exercises and fasting to manage plantar fasciitis symptoms. - Maintain current citalopram regimen for anxiety management and continue engaging in activities like exercise and playing piano. - Use knee brace as needed for support and monitor knee pain recovery. - Explore options for weight loss medication, considering insurance coverage limitations. - Ensure influenza vaccination is documented and consider scheduling a mammogram with [facility]. Discussion Notes During the visit, we discussed the management of plantar fasciitis, emphasizing the importance of stretching exercises and fasting to reduce inflammation. We reviewed the current anxiety management plan with citalopram and encouraged continued engagement in activities like exercise and playing piano. For knee pain, the use of a brace was recommended as needed. We explored weight loss medication options, considering insurance coverage limitations, and discussed the importance of preventative care, including influenza vaccination and scheduling a mammogram with [facility]. Patient Instructions - Continue stretching exercises and fasting to help with foot pain. - Keep taking citalopram for anxiety and stay active with exercise and piano playing. - Use a knee brace if needed and be cautious with knee movements. - Look into weight loss medication options and check with insurance about coverage. - Make sure your flu shot is recorded and plan to schedule a mammogram with [facility]. Orders: Orders Influenza [id number] Immunization Today Z23 - Encounter for immunization
[2025-06-02 11:51] VITALS: BP 126/59; PULSE 74; TEMP 36.7; O2SAT 96; BMI 39.0
== END 2025-06-02 12:15 | disposition home or self-care (01) ==
LOC: HO.HMCSH 11:58
PROVIDERS: PCP Internal Medicine; Visit Provider Internal Medicine
DX: Z23 Encounter for immunization (principal); F32.A Depression, unspecified

== ENCOUNTER → 2025-06-02 11:58 | Outpatient (BNVA) | payer BC, SELFPAY | PROVIDERS: PCP Internal Medicine; Visit Provider Internal Medicine | DX: F32.A Depression, unspecified (principal); Z28.9 Immunization not carried out for unspecified reason | CPT/HCPCS: 90471; 96127 ==